=== PATIENT | female | born 1965 | race Caucasian/White ===

== ENCOUNTER → 2017-07-07 | Day surgery (SDC) | payer BC ==
--- NOTE | 2017-07-08 17:29 | PATH ---
Cytology Non-Gynecological Report Patient Name: KIMBER CASAS [facility]. Rec. #: [id number] /Age/Gender: 1965 (Age: 51) / F Account: [id number] Location: RADIOLOGY Taken: 07/07/2017 Received: 07/07/2017 Reported: 07/08/2017 Physicians: Nj Garcia M.D. Specimen(s) Received LEFT THYROID FNA Clinical History Left thyroid nodule, 1.6 x 2.2 x 1.3 cm Final Diagnosis THYROID GLAND, LEFT LOBE, US GUIDED FINE NEEDLE ASPIRATION BIOPSY: SATISFACTORY FOR EVALUATION. NO MALIGNANT CELLS IDENTIFIED. CONSISTENT WITH NODULAR HYPERPLASIA (BENIGN FOLLICULAR NODULE, BETHESDA CATEGORY II, BENIGN), SEE COMMENT. Comment: The smears and the cell block show clusters of bland appearing follicular epithelial cells arranged in macro-and microfollicles and flat sheets. Most of the cells show Hurthle cell (oncocytic) change. Abundant colloid is present. Electronically Signed Ignacio Frias M.D. Gross Description Received are four air dried smears, four smears in 95% alcohol, and 20 cc of bloody fluid in formalin. Four diff-quik stained slides, four Pap stained slides and one cell block are made.
== END | disposition home or self-care (01) ==
LOC: JRADIR 09:00
PROVIDERS: ATTEND Internal Medicine
PROC: 0G9G3ZX Drainage of Left Thyroid Gland Lobe, Percutaneous Approach, Diagnostic (ICD-10-PCS; principal; 2017-07-07)
PROC: BG44ZZZ Ultrasonography of Thyroid Gland (ICD-10-PCS; 2017-07-07)
DX: E04.1 Nontoxic single thyroid nodule (principal)
CPT/HCPCS: 76942; 88173; 88305-TC

== ENCOUNTER 2017-12-15 08:44 | Day surgery (SDC) | payer BC ==
[2017-12-07 19:10] VITALS: BMI 20.8
[2017-12-15] MEDS ORDERED: PROPOFOL 20 ML ONE ×2 (09:12)
[2017-12-15 11:10] VITALS: TEMP 98
[2017-12-15 11:31] VITALS: BP 131/78; PULSE 88
== END 2017-12-15 11:30 | disposition home or self-care (01) ==
LOC: FASU-ENDO 08:44
PROVIDERS: ATTEND Internal Medicine Gastroenterology
PROC: 0DJD8ZZ Inspection of Lower Intestinal Tract, Via Natural or Artificial Opening Endoscopic (ICD-10-PCS; principal; 2017-12-15 10:19)
DX: R10.9 Unspecified abdominal pain (principal); K64.8 Other hemorrhoids
CPT/HCPCS: 84703

== ENCOUNTER 2017-12-27 14:30 | Emergency (ER) | payer BC ==
--- NOTE | 2017-12-27 14:42 | PDOC ---
Rapid Medical Evaluation Time Seen by Provider: 12/27/17 14:38 Medical Evaluation: Allergies Allergy/AdvReac Type Severity Reaction Status Date / Time erythromycin base Allergy Vomiting Verified 12/07/17 18:54 [Erythromycin Base] LORMAX Allergy Severe Rash Uncoded 12/15/17 09:41 12/27/17 14:39 I have performed a brief in person evaluation of this patient. The patient presents with chief complaint of : dizzyness for 2 days, with right shoulder pain and tachycardia for 2 day. sent by . Pertinent PE findings: HR 129 , 138/91 I have ordered the following: EKG, The patient will proceed to the ER for further evaluation. 12/27/17 14:40
[2017-12-27 14:43] VITALS: TEMP 97.9; BMI 20.8
[2017-12-27 15:15] LABS: HCG,QUALITATIVE URINE NEGATIVE
--- NOTE | 2017-12-27 15:18 | PDOC ---
History of Present Illness - General Chief Complaint: Palpitations Stated Complaint: RAPID HEARTBEAT (PCP SENT) Time Seen by Provider: 12/27/17 14:38 - History of Present Illness Initial Comments: 12/27/17 15:20 52F with pmh of MS and endometriosis on oral contraceptive medication presenting with right scapular pain for the past 2 days and persistent tachycardia found by her pcp Dr. Rincon. Recent colonoscopy (12/15) for abdominal pain, now resolved. Denies abdominal pain, chest pain, anxiety or shortness of breath. 12/27/17 16:44 Past History - Past Medical History Allergies/Adverse Reactions: Allergies Allergy/AdvReac Type Severity Reaction Status Date / Time erythromycin base Allergy Vomiting Verified 12/27/17 14:43 [Erythromycin Base] LORMAX Allergy Severe Rash Uncoded 12/27/17 14:43 Home Medications: Ambulatory Orders Dalfampridine [Ampyra] 10 mg PO BID 07/16/12 Fingolimod HCl [Gilenya] 0.5 mg PO DAILY 07/16/12 Cholecalciferol (Vitamin D3) [Vitamin D3] 2,000 unit PO BID 12/07/17 Cyanocobalamin (Vitamin B-12) [Vitamin B-12] 1,000 mcg PO DAILY 12/07/17 Leuprolide Acetate [Lupron Depot 3.75MG -] 3.753 mg IM MONTHLY 12/07/17 Norethindrone Acetate [Norethindrone AC (Lupaneta)] 5 mg PO DAILY 12/07/17 Anemia: No Asthma: No Cancer: No Cardiac Disorders: No CVA: No COPD: No CHF: No Dementia: No Diabetes: No GI Disorders: No Disorders: No HTN: No Hypercholesterolemia: No Liver Disease: No Seizures: No Thyroid Disease: No - Surgical History Abdominal Surgery: Yes (upper endoscopy) Appendectomy: No Cardiac Surgery: No Cholecystectomy: No Lung Surgery: No Neurologic Surgery: No Orthopedic Surgery: No - Suicide/Smoking/Psychosocial Hx Smoking Status: No Smoking History: Never smoked Have you smoked in the past 12 months: No Number of Cigarettes Smoked Daily: 0 Information on smoking cessation initiated: No Hx Alcohol Use: No Drug/Substance Use Hx: No Substance Use Type: Alcohol Hx Substance Use Treatment: No Cardiac Specific PMH - Complaint Specific PMHX Pacemaker: No Review of Systems - Review of Systems Able to Perform ROS?: Yes Is the patient limited Bengali proficient: No Constitutional: No: Symptoms Reported HEENTM: No: Symptoms Reported Respiratory: No: Symptoms reported Cardiac (ROS): No: Symptoms Reported ABD/GI: No: Symptoms Reported : No: Symptoms Reported Musculoskeletal: Yes: See HPI Integumentary: No: Symptoms Reported Neurological: No: Symptoms reported All Other Systems: Reviewed and Negative *Physical Exam - Vital Signs Last Vital Signs Temp Pulse Resp BP Pulse Ox 97.9 F 108 H 18 141/86 97 12/27/17 14:40 12/27/17 18:27 12/27/17 18:27 12/27/17 18:27 12/27/17 18:27 - Physical Exam General Appearance: Yes: Nourished, Appropriately Dressed. No: Apparent Distress HEENT: positive: EOMI, ISABELLA, Normal ENT Inspection Respiratory/Chest: positive: Lungs Clear, Normal Breath Sounds. negative: Chest Tender, Respiratory Distress Cardiovascular: positive: Regular Rhythm, S1, S2, Tachycardia Gastrointestinal/Abdominal: positive: Normal Bowel Sounds, Flat, Soft. negative : Tender Musculoskeletal: positive: Normal Inspection. negative: CVA Tenderness Extremity: positive: Normal Capillary Refill, Normal Inspection, Normal Range of Motion Neurologic: positive: Fully Oriented, Alert, Normal Mood/Affect, Normal Response ED Treatment Course - LABORATORY CBC & Chemistry Diagram: 12/27/17 16:00 12/27/17 16:00 - ADDITIONAL ORDERS Additional order review: Laboratory Results 12/27/17 12/27/17 12/27/17 16:00 16:00 16:00 Sodium 140 Potassium 4.1 Chloride 109 H Carbon Dioxide 23 Anion Gap 8 BUN 7 Creatinine 0.7 Creat Clearance w eGFR > 60 Random Glucose 76 Calcium 8.6 Total Bilirubin 0.4 AST 12 L ALT 17 Alkaline Phosphatase 66 Creatine Kinase 162 Creatine Kinase Index 2.8 CK-MB (CK-2) 4.583 H Troponin I < 0.02 Total Protein 6.8 Albumin 4.2 TSH 1.05 Urine Color Urine Appearance Urine pH Ur Specific Stockett Urine Protein Urine Glucose (UA) Urine Ketones Urine Blood Urine Nitrite Urine Bilirubin Urine Urobilinogen Ur Leukocyte Esterase Urine HCG, Qual 12/27/17 14:55 Sodium Potassium Chloride Carbon Dioxide Anion Gap BUN Creatinine Creat Clearance w eGFR Random Glucose Calcium Total Bilirubin AST ALT Alkaline Phosphatase Creatine Kinase Creatine Kinase Index CK-MB (CK-2) Troponin I Total Protein Albumin TSH Urine Color Ltyellow Urine Appearance Clear Urine pH 6.0 Ur Specific Stockett 1.010 Urine Protein Negative Urine Glucose (UA) Negative Urine Ketones 1+ H Urine Blood Negative Urine Nitrite Negative Urine Bilirubin Negative Urine Urobilinogen Negative Ur Leukocyte Esterase Negative Urine HCG, Qual Negative 12/27/17 16:00 RBC 4.73 MCV 90.6 MCHC 33.6 RDW 13.9 MPV 9.5 Neutrophils % 81.8 Lymphocytes % 5.7 L Monocytes % 11.4 H Eosinophils % 0.8 Basophils % 0.3 - RADIOLOGY Radiology Studies Ordered: Category Date Time Status CHEST CTA [CT] Stat CT Scan 12/27/17 16:06 Completed CHEST X-RAY PORTABLE* [RAD] Stat Radiology 12/27/17 16:01 Completed Medical Decision Making - Medical Decision Making 12/27/17 16:14 Patient is high risk for PE as she has thoracic chest pain, is persistently tachycardic and is taking oral contraceptive medication. Her last creatinine was within normal limits in september. Hence i believe she has high risk factor for PE and low risk of kidney injury. I believe patient can get chest CTA without waiting for creatinine level, Dr. Stock concurred. 12/27/17 16:25 12/27/17 18:02 CTA negative for PE. PAtient ok to be discharged *DC/Admit/Observation/Transfer Diagnosis at time of Disposition: Palpitations - Discharge Dispostion Disposition: HOME Condition at time of disposition: Improved Admit: No - Referrals Referrals: Dennis Barry MD [Primary Care Provider] - - Patient Instructions Printed Discharge Instructions: DI for Palpitations Additional Instructions: Come Back to the Er for any new, concerning or worsening symptom. Follow up with Dr. Barry tomorrow and with your neurologist within the week. - Post Discharge Activity
[2017-12-27 15:20] LABS: URINE APPEARANCE CLEAR; URINE BILIRUBIN NEGATIVE (NEGATIVE); URINE BLOOD NEGATIVE (NEGATIVE); URINE COLOR LTYELLOW; URINE GLUCOSE (UA) NEGATIVE (NEGATIVE); URINE KETONE 1+ (NEGATIVE); URINE LEUK ESTERASE NEGATIVE (NEGATIVE); URINE NITRITE NEGATIVE (NEGATIVE); URINE PROTEIN NEGATIVE (NEGATIVE); URINE UROBILINOGEN NEGATIVE mg/dL (0.2-1.0)
[2017-12-27 16:19] LABS: BASO % 0.3 % (0-2.0); EOS % 0.8 % (0-4.5); HEMATOCRIT 42.9 % (32.4-45.2); HEMOGLOBIN 14.4 GM/dL (10.7-15.3); LYMPH % 5.7 % (8-40); MCH 30.4 pg (25.7-33.7); MCHC 33.6 g/dl (32.0-36.0); MEAN CELL VOLUME 90.6 fl (80-96); MEAN PLT VOLUME 9.5 fl (7.5-11.1); MONO % 11.4 % (3.8-10.2); NEUT % 81.8 % (42.8-82.8); PLATELET COUNT 248 K/MM3 (134-434); RBC 4.73 M/mm3 (3.60-5.2); RDW 13.9 % (11.6-15.6); WHITE BLOOD COUNT 6.6 K/mm3 (4.0-10.0)
[2017-12-27 16:51] LABS: ALBUMIN 4.2 g/dl (3.4-5.0); ANION GAP 8 (8-16); BLOOD UREA NITROGEN 7 mg/dL (7-18); CALCIUM 8.6 mg/dL (8.5-10.1); CHLORIDE 109 mmol/L (98-107); CO2 23 mmol/L (21-32); CREATININE 0.7 mg/dL (0.55-1.02); GLUCOSE,RANDOM 76 mg/dL (74-106); POTASSIUM 4.1 mmol/L (3.5-5.1); SGOT/AST 12 U/L (15-37); SGPT/ALT 17 U/L (12-78); SODIUM 140 mmol/L (136-145)
[2017-12-27 16:53] LABS: ALK PHOS 66 U/L (45-117); BILIRUBIN,TOTAL 0.4 mg/dL (0.2-1.0); TOT PROT 6.8 g/dl (6.4-8.2)
--- NOTE | 2017-12-27 17:03 | PDOC ---
Attending Attestation - Resident Resident Name: Jean ClaudeBlayne - ED Attending Attestation I have performed the following: I have examined & evaluated the patient, The case was reviewed & discussed with the resident, I agree w/resident's findings & plan, Exceptions are as noted - HPI HPI: 12/27/17 16:58 52y/o F h/o MS presents from GI office for sinus tachycardia in the setting of atraumatic right scapular pain since yesterday. No chest pain or shortness of breath, no recent travel, she is on exogenous hormones for endometriosis. Chronic intermittent RLE swelling from her MS. Pt's tachycardia has been noted for at least one month, initially at neurologist visit in November then again at her colonoscopy on 12/15. When she was noted to again be tachycardic today at the GI f/u appt, she was referred to the ED. had thyroid nodule biopsied end of 2016, never told she was hyperthyroid. Has no exertional sxs or weight loss. - Physicial Exam PE: 12/27/17 17:01 Heart rate 120s, blood pressure normal, O2 sat normal well appearing, speaking full sentences Exam as noted, regular tachycardia, no signs of DVT - no edema noted no thyroid enlargement or nodules - Medical Decision Making 12/27/17 17:01 Patient seen and evaluated with the resident. I agree with the overall evaluation, assessment, and management with the following summary of visit: 52-year-old female with nonspecific right scapular pain for 1 day and subacute sinus tachycardia over 1-2 months. No respiratory distress, does have some risk factors for PE. EKG shows sinus tachycardia without acute T wave changes, some rate related lateral ST depressions. Labs are within normal limits, including hemoglobin and troponin. Will add TSH. CTA chest given moderate risk for PE (hormones, tachycardia) Reassess, if remains tachycardic will discuss dispo plan with Dr. Barry. Has never seen a horologist. Heart Score/ECG Review #1 ECG reviewed & interpreted by me at: 14:36 General ECG Interpretation: Sinus Rhythm (tachy at 124), Normal Intervals (qtc 451), No acute ischemic changes
[2017-12-27 18:28] VITALS: BP 141/86; PULSE 108
--- NOTE | 2017-12-28 11:31 | EKG ---
Test Reason : Blood Pressure : / mmHG Vent. Rate : 124 BPM Atrial Rate : 124 BPM P-R Int : 156 ms QRS Dur : 062 ms QT Int : 314 ms P-R-T Axes : 071 037 060 degrees QTc Int : 451 ms SINUS TACHYCARDIA POSSIBLE LEFT ATRIAL ENLARGEMENT NONSPECIFIC ST ABNORMALITY ABNORMAL ECG NO PREVIOUS ECGS AVAILABLE Confirmed by MD Fernando, Cody ([id number]) on 12/28/2017 11:31:17 AM Referred By: Confirmed By:Cody King MD
== END 2017-12-27 18:40 | disposition home or self-care (01) ==
LOC: JER 14:30
DX: M25.511 Pain in right shoulder (principal); R00.0 Tachycardia, unspecified
CPT/HCPCS: 36415; 71045-TC-FY; 71275-TC; 80053; 81003; 82550; 82553; 84443; 84484; 84703; 85025; 93005; 93010; 99284-25

== ENCOUNTER 2018-08-30 00:32 | Emergency (ER) | payer BC ==
--- NOTE | 2018-08-30 01:32 | PDOC ---
History of Present Illness - General Stated Complaint: FALL, INJURY/HEAD Time Seen by Provider: 08/30/18 01:08 History Source: Patient Exam Limitations: No Limitations - History of Present Illness Initial Comments: 08/30/18 02:37 Best Contact: PCP:Dr. Phoenix Pmhx: 1997: Pshx: BTL Allergies:erythromycin/hives and vomiting FH:0 Social Hx: Cigarettes/ 0 Alcohol/ 0 Drugs/0 52-year-old female presents to the emergency department complaining of a laceration to the left occiput. Patient states while reaching for remote control , she tripped and fell to the left. Bleeding controlled with direct pressure prior to her arrival. Patient denies LOC, headache, dizziness, lightheadedness, facial pains, neck/back pains, chest pain, shortness of breath, abdominal pains , extremity numbness or tingling sensation. Patient's last tetanus within 5 years. Patient denies any pain except for her lacerated scalp. Past History - Past Medical History Allergies/Adverse Reactions: Allergies Allergy/AdvReac Type Severity Reaction Status Date / Time erythromycin base Allergy Vomiting Verified 08/30/18 02:01 [Erythromycin Base] LORMAX Allergy Severe Rash Uncoded 08/30/18 02:01 Home Medications: Ambulatory Orders Dalfampridine [Ampyra] 10 mg PO BID 07/16/12 Fingolimod HCl [Gilenya] 0.5 mg PO DAILY 07/16/12 Cholecalciferol (Vitamin D3) [Vitamin D3] 2,000 unit PO BID 12/07/17 Cyanocobalamin (Vitamin B-12) [Vitamin B-12] 1,000 mcg PO DAILY 12/07/17 Leuprolide Acetate [Lupron Depot 3.75MG -] 3.753 mg IM MONTHLY 12/07/17 Norethindrone Acetate [Norethindrone AC (Lupaneta)] 5 mg PO DAILY 12/07/17 Anemia: No Asthma: No Cancer: No Cardiac Disorders: No CVA: No COPD: No CHF: No Dementia: No Diabetes: No GI Disorders: No Disorders: No HTN: No Hypercholesterolemia: No Liver Disease: No Seizures: No Thyroid Disease: No - Surgical History Abdominal Surgery: Yes (upper endoscopy) Appendectomy: No Cardiac Surgery: No Cholecystectomy: No Lung Surgery: No Neurologic Surgery: No Orthopedic Surgery: No - Suicide/Smoking/Psychosocial Hx Smoking Status: No Smoking History: Never smoked Have you smoked in the past 12 months: No Number of Cigarettes Smoked Daily: 0 Hx Alcohol Use: No Drug/Substance Use Hx: No Substance Use Type: Alcohol Hx Substance Use Treatment: No Review of Systems - Review of Systems Able to Perform ROS?: Yes Comments:: 08/30/18 02:39 CONSTITUTIONAL: Absent: fever, chills, diaphoresis, generalized weakness, malaise, loss of appetite HEENT: Absent: rhinorrhea, nasal congestion, throat pain, throat swelling, difficulty swallowing, mouth swelling, ear pain, eye pain, visual Changes CARDIOVASCULAR: Absent: chest pain, loss of consciousness, palpitations, irregular heart rate, peripheral edema RESPIRATORY: Absent: cough, shortness of breath, dyspnea with exertion, orthopnea, wheezing, stridor, hemoptysis GASTROINTESTINAL: Absent: abdominal pain, abdominal distension, nausea, vomiting, diarrhea, constipation, melena, hematochezia GENITOURINARY: Absent: dysuria, frequency, urgency, hesitancy, hematuria, flank pain, genital pain MUSCULOSKELETAL: Absent: myalgia, arthralgia, joint swelling SKIN: Absent: rash, itching, pallor HEMATOLOGIC/IMMUNOLOGIC: Absent: easy bleeding, easy bruising, lymphadenopathy, frequent infections ENDOCRINE: Absent: unexplained weight gain, unexplained weight loss, heat intolerance, cold intolerance NEUROLOGIC: +Left occipital scalp lac Absent: headache, focal weakness or paresthesias, dizziness, unsteady gait, seizure, mental status changes, bladder or bowel incontinence PSYCHIATRIC: Absent: anxiety, depression, suicidal or homicidal ideation, hallucinations. Is the patient limited Ukrainian proficient: No *Physical Exam - Physical Exam Comments: 08/30/18 02:40 GENERAL: Well developed, well nourished. Awake and alert. No acute distress. HEENT: Normocephalic, atraumatic. PERRLA, EOMI. No conjunctival pallor. Sclera are non- icteric. Moist mucous membranes. Oropharynx is clear. NECK: Supple. Full ROM. No JVD. Carotid pulses 2+ and symmetric, without bruits. No thyromegaly. No lymphadenopathy. CARDIOVASCULAR: Regular rate and rhythm. No murmurs, rubs, or gallops. Distal pulses are 2+ and symmetric. PULMONARY: No evidence of respiratory distress. Lungs clear to auscultation bilaterally. No wheezing, rales or rhonchi. ABDOMINAL: Soft. Non-tender. Non-distended. No rebound or guarding. No organomegaly. Normoactive bowel sounds. MUSCULOSKELETAL Normal range of motion at all joints. No bony deformities or tenderness. No CVA tenderness. EXTREMITIES: No cyanosis. No clubbing. No edema. No calf tenderness. SKIN: 3.5cm left occipital oblique partial thickness scalp lac Warm and dry. Normal capillary refill. No rashes. No jaundice. NEUROLOGICAL: Alert, awake, appropriate. Cranial nerves 2-12 intact. No deficits to light touch and temperature in face, upper extremities and lower extremities. No motor deficits in the in face, upper extremities and lower extremities. Normoreflexic in the upper and lower extremities. Normal speech. Toes are down- going bilaterally. Gait is normal without ataxia. PSYCHIATRIC: Cooperative. Good eye contact. Appropriate mood and affect. PROCEDURE NOTE 3.5 cm left occipital oblique partial-thickness scalp last Betadine prep 1% lidocaine plain= 4 mL Copious normal saline irrigation (4) lavern Bacitracin telfa kerlix *DC/Admit/Observation/Transfer Diagnosis at time of Disposition: Laceration of head Qualifiers: Encounter type: initial encounter Location of open wound of head: scalp Foreign body presence: without foreign body Qualified Code(s): S01.01XA - Laceration without foreign body of scalp, initial encounter - Discharge Dispostion Condition at time of disposition: Stable Decision to Admit order: No - Referrals Referrals: Dennis Barry MD [Primary Care Provider] - - Patient Instructions Printed Discharge Instructions: DI for Laceration Repair of the Scalp, DI for Closed Head Injury Additional Instructions: Keep the incision clean and dry for 24 hours. After 24 hours, you may allow the soap and water to rinse off your incision. Avoid direct pressure of the water to the incision. Pat the incision dry with a clean clothe. Apply a small amount of bacitracin onto the incision. Cover the incision loosely with a bandaid. Take tylenol/motrin as needed for pain. Follow up with your physician or the ER in 48 hours for a wound check. Return to the ER if you notice red streaks, increase redness/swelling/severe pain to the incision. Lavern removal in 10-12 days. - Post Discharge Activity
[2018-08-30 02:01] VITALS: BP 114/96; PULSE 102; TEMP 99; BMI 20.1
== END 2018-08-30 04:00 | disposition home or self-care (01) ==
LOC: JER 00:32
PROC: 0HQ0XZZ Repair Scalp Skin, External Approach (ICD-10-PCS; principal; 2018-08-30)
DX: S01.01XA Laceration without foreign body of scalp, initial encounter (principal); W01.198A Fall on same level from slipping, tripping and stumbling with subsequent striking against other object, initial encounter; Y93.89 Activity, other specified; Y92.89 Other specified places as the place of occurrence of the external cause; Y99.8 Other external cause status
CPT/HCPCS: 99281-25

== ENCOUNTER 2018-11-27 13:32 | Emergency (ER) | payer BC ==
[2018-11-27 13:42] VITALS: BP 152/69; PULSE 129; TEMP 97.8; BMI 24.1
--- NOTE | 2018-11-27 14:29 | PDOC ---
History of Present Illness - General Chief Complaint: Chest Pain Stated Complaint: CHEST PAIN Time Seen by Provider: 11/27/18 14:28 - History of Present Illness Initial Comments: 53 year old female with PMH of MS (currently having a flareup scheduled for IV steroid treatment) presenting with epigastric pain for the past few hours. States she began having an aching gnawing pain in her epigastrium 4 hours before presentation and she took some backing soda and water one hour ago. States that she is currently asymptomatic and would like to go home. Of note, she has a baseline tacycardia for the past year "110 and above" according to her that she has been evaluated for her fast heart rate and chest pain in the past with negative CT PE last year and holter monitor negative for anything concerning by Dr. Milner. She is set up for an echo and a stress test. She insists that she is stable to go home. She is not currently on estrogen therapy but was in the past. 11/27/18 14:41 Past History - Past Medical History Allergies/Adverse Reactions: Allergies Allergy/AdvReac Type Severity Reaction Status Date / Time erythromycin base Allergy Vomiting Verified 08/30/18 02:01 [Erythromycin Base] LORMAX Allergy Severe Rash Uncoded 08/30/18 02:01 Home Medications: Ambulatory Orders Dalfampridine [Ampyra] 10 mg PO BID 07/16/12 Fingolimod HCl [Gilenya] 0.5 mg PO DAILY 07/16/12 Cholecalciferol (Vitamin D3) [Vitamin D3] 2,000 unit PO BID 12/07/17 Cyanocobalamin (Vitamin B-12) [Vitamin B-12] 1,000 mcg PO DAILY 12/07/17 Anemia: No Asthma: No Cancer: No Cardiac Disorders: Yes (tachycardic) CVA: No COPD: No CHF: No Dementia: No Diabetes: No GI Disorders: No Disorders: No HTN: No Hypercholesterolemia: No Liver Disease: No Seizures: No Thyroid Disease: No Other medical history: MS - Surgical History Abdominal Surgery: Yes (upper endoscopy) Appendectomy: No Cardiac Surgery: No Cholecystectomy: No Lung Surgery: No Neurologic Surgery: No Orthopedic Surgery: No - Immunization History Immunization Up to Date: No - Suicide/Smoking/Psychosocial Hx Smoking Status: No Smoking History: Never smoked Have you smoked in the past 12 months: No Number of Cigarettes Smoked Daily: 0 Information on smoking cessation initiated: No Hx Alcohol Use: No Drug/Substance Use Hx: No Substance Use Type: Alcohol Hx Substance Use Treatment: No Review of Systems - Review of Systems Constitutional: No: Chills, Diaphoresis, Fever, Loss of Appetite HEENTM: No: Eye Pain, Blurred Vision, Tearing Respiratory: No: Cough, Orthopnea, Shortness of Breath, SOB with Exertion, Wheezing Cardiac (ROS): No: Chest Pain, Edema, Irregular Heart Rate ABD/GI: Yes: Other (epigastric pain). No: Nausea, Vomiting : No: Burning, Dysuria, Discharge Musculoskeletal: No: Back Pain, Joint Pain Integumentary: No: Flushing, Lesions, Lumps Neurological: No: Headache, Numbness, Paresthesia Psychiatric: No: Anxiety, Depression Endocrine: No: Flushing, Intolerance to Cold, Increased Urine Hematologic/Lymphatic: No: Anemia, Blood Clots, Easy Bleeding *Physical Exam - Vital Signs Last Vital Signs Temp Pulse Resp BP Pulse Ox 97.8 F 129 H 16 152/69 98 11/27/18 13:35 11/27/18 13:35 11/27/18 13:35 11/27/18 13:35 11/27/18 13:35 - Physical Exam General Appearance: Yes: Nourished, Appropriately Dressed. No: Apparent Distress HEENT: positive: EOMI, ISABELLA, Normal ENT Inspection, Normal Voice Neck: positive: Trachea midline, Normal Thyroid, Supple. negative: Tender, Rigid Respiratory/Chest: positive: Lungs Clear, Normal Breath Sounds. negative: Chest Tender, Respiratory Distress, Accessory Muscle Use Cardiovascular: positive: Regular Rhythm, Tachycardia. negative: Regular Rate Gastrointestinal/Abdominal: positive: Normal Bowel Sounds, Tender (epigastric ttp), Flat, Soft Musculoskeletal: positive: Normal Inspection. negative: CVA Tenderness Extremity: positive: Normal Capillary Refill, Normal Inspection, Normal Range of Motion. negative: Tender Integumentary: positive: Normal Color, Dry, Warm Neurologic: positive: Fully Oriented, Alert, Normal Mood/Affect, Normal Response , Motor Strength 5/5 Moderate Sedation - Procedure Monitoring Vital Signs: Procedure Monitoring Vital Signs Temperature 97.8 F 11/27/18 13:35 Pulse Rate 129 H 11/27/18 13:35 Respiratory Rate 16 01/27/19 13:35 Blood Pressure 152/69 01/27/19 13:35 O2 Sat by Pulse Oximetry (%) 98 11/27/18 13:35 ED Treatment Course - LABORATORY CBC & Chemistry Diagram: 11/27/18 15:20 11/27/18 15:20 Medical Decision Making - Medical Decision Making 53 year old female with PMH of MS presenting with epigastric pain, non radiating , non exertional, non pleuritic and resolved one hour after baking soda and water ingestion. Insists that she is stable and ready to go home. She did, however, agree to basic labs, trop, ekg and CXR. All imaging and labs were negative for acute pathology. Her hr improved from 130s to low 100s after 1 L NS. She was complaining of some continued epigastric burning toward the end of her stay so she was given IV Pepcid and DC'd with follow up precautions. EKG demonstrating rate 127, GA 132, QRS 64, QTc 430, normal axis and no ST or t wave changes. She follow with Dr. Milner for cardiology. 11/27/18 15:11 *DC/Admit/Observation/Transfer Diagnosis at time of Disposition: Tachycardia, Epigastric pain - Discharge Dispostion Disposition: HOME Condition at time of disposition: Improved Decision to Admit order: No - Referrals Referrals: Dennis Barry MD [Primary Care Provider] - Kyle Milner MD [Non Staff, Medical] - - Patient Instructions Printed Discharge Instructions: DI for Atypical Chest Pain, DI for Epigastric Pain Additional Instructions: Please use your Maalox and antacids at home for you epigastric pain. Please follow up with your beauty sales consultant. Please return to the ED if you have new or worsening symptoms. - Post Discharge Activity
[2018-11-27] MEDS ORDERED: SODIUM CHLORIDE 1,000 ML IV ONE (15:15)
--- NOTE | 2018-11-27 15:23 | PDOC ---
Attending Attestation - Resident Resident Name: Dena Barcenas - ED Attending Attestation I have performed the following: I have examined & evaluated the patient, The case was reviewed & discussed with the resident, I agree w/resident's findings & plan, Exceptions are as noted - HPI HPI: 11/27/18 16:29 This patient is a 53 year old female with PMHx of MS (currently having a flare- up scheduled for IV solumedrol tomorrow, 6 mos ago last steroid use) presenting with epigastric pain for the past 5 days. Patient states that for the past month she has been having an MS flare-up (sx include generalized weakness, feeling foggy, borderline numbness, and constipation). She states that for the past couple of days she developed this epigastric pain that she describes as constant, pressure-like with associated burping. She states that the epigastric pain felt like her gastritis. She also reports feeling nauseous and hot - which is not usual for her she states. She denies worsening of her symptmos with exertion/ambulation and notes that it seems to feel better when she is walking around. Today, she states that she drank diluted baking soda to help relieve her epigastric symptoms which have since resolved after arriving to the ER. She notes that she has a stress test and echo scheduled with her occupational therapy assist and is being evaluated for her baseline tachycardia. She states that she usually runs 110+ bpm . She has been evaluated for her fast heart rate and chest pain in the past with negative CT PE last year and holter monitor negative for anything concerning by Dr. Milner. Denies any sob, beauchamp, fever, cough, diarrhea, vimting, diaphoresis, lightheadedness, edema, visual changes, focal weakness. PCP: Asha Document Review Attorney: Dr. Milner Neurologist: Jeffery Cobian ([facility]) - Physicial Exam PE: 11/27/18 15:21 GENERAL: The patient is awake, alert, and fully oriented, Nontoxic - in no acute distress. HEAD: Normocephalic, atraumatic. EYES: extraocular movements intact, sclera anicteric, conjunctiva clear. ENT: Normal voice, Moist mucous membranes. NECK: Normal range of motion, supple LUNGS: Breath sounds equal, clear to auscultation bilaterally. No wheezes, no rhonchi, no rales. HEART: tachycardic, no mrg ABDOMEN: Soft, nontender, normoactive bowel sounds. No guarding, no rebound. . No CVA tenderness EXTREMITIES: Normal range of motion, trace edema. NEUROLOGICAL: No facial assymetry, Normal speech, moving all 4 extremities spontaneously, deminsiehd sensation diffseuly PSYCH: Normal mood, normal affect. SKIN: Warm, Dry, normal turgor, - Medical Decision Making 11/27/18 15:17 53y F hx of MS, tachycardia (currently being worked up by cardiology) presents with about a week of epigastric burning (cw perior gastritis) that is constant, but currentyl resolved after taking baking soda and water. no exertional sypmtoms, sob, n/v, diaphoresis, leg swelling, diarrhea, bpr, urinary sypmtoms, fever/chills on exam pt in no distress noted tachycardic on triage on my exam will ck labs, trop, lipase, ekg, cxr hydration for her tachycardia no cp or discomfort currently A portion of this note was documented by scribe services under my direction. I have reviewed the details of the note, within reason, and agree with the documentation with the following case summary and management plan written by me Heart Score/ECG Review - ECG Impressions Comment:: 11/27/18 15:19 Twelve-lead EKG was performed and reviewed by me. There is normal sinus rhythm rate of [address] wave changes
[2018-11-27 15:32] LABS: BASO % 0.6 % (0-2.0); EOS % 0.4 % (0-4.5); HEMATOCRIT 43.1 % (32.4-45.2); HEMOGLOBIN 15.1 GM/dL (10.7-15.3); LYMPH % 6.2 % (8-40); MCH 31.5 pg (25.7-33.7); MCHC 35.1 g/dl (32.0-36.0); MEAN CELL VOLUME 89.7 fl (80-96); MEAN PLT VOLUME 9.7 fl (7.5-11.1); MONO % 10.5 % (3.8-10.2); NEUT % 82.3 % (42.8-82.8); PLATELET COUNT 227 K/MM3 (134-434); RDW 13.4 % (11.6-15.6); WHITE BLOOD COUNT 6.2 K/mm3 (4.0-10.0)
[2018-11-27 15:54] LABS: INR 0.92 (0.83-1.09); PROTHROMBIN TIME (PATIENT) 10.8 SEC (9.7-13.0)
[2018-11-27 16:09] LABS: ALBUMIN 4.8 g/dl (3.4-5.0); ALK PHOS 84 U/L (45-117); ANION GAP 8 MMOL/L (8-16); BILIRUBIN,TOTAL 0.3 mg/dL (0.2-1); BLOOD UREA NITROGEN 10 mg/dL (7-18); CALCIUM 8.9 mg/dL (8.5-10.1); CHLORIDE 110 mmol/L (98-107); CO2 26 mmol/L (21-32); CREATININE 0.6 mg/dL (0.55-1.3); GLUCOSE,RANDOM 90 mg/dL (74-106); N-TERMINAL BNP 92.9 pg/ml (5-125); POTASSIUM 3.8 mmol/L (3.5-5.1); SGOT/AST 12 U/L (15-37); SGPT/ALT 25 U/L (13-61); SODIUM 143 mmol/L (136-145); TOT PROT 7.5 g/dl (6.4-8.2)
[2018-11-27 16:43] LABS: LIPASE 208 U/L (73-393)
[2018-11-27] MEDS ORDERED: FAMOTIDINE 20 MG/50 ML IVPB 20 MG in PREMIX 50 IVPB ONE (16:52)
[2018-11-27] MEDS ORDERED: MAG HYDROX/AL HYDROX/SIMETH -MYLANTA- ORAL SUSPENSION PO ONE (16:52)
[2018-11-27] MEDS ORDERED: FAMOTIDINE 20 MG/50 ML IVPB 20 MG/50 ML MG IVPB ONE ×2 (17:04→17:10)
[2018-11-27] MEDS ORDERED: MAG HYDROX/AL HYDROX/SIMETH 30 ML UNIT-DOSE CUP ONE (17:10)
--- NOTE | 2018-11-28 10:57 | EKG ---
Test Reason : Blood Pressure : / mmHG Vent. Rate : 127 BPM Atrial Rate : 127 BPM P-R Int : 132 ms QRS Dur : 064 ms QT Int : 296 ms P-R-T Axes : 069 041 044 degrees QTc Int : 430 ms SINUS TACHYCARDIA POSSIBLE LEFT ATRIAL ENLARGEMENT NONSPECIFIC ST ABNORMALITY ABNORMAL ECG WHEN COMPARED WITH ECG OF 27-DEC-2017 14:36, NO SIGNIFICANT CHANGE WAS FOUND Confirmed by MAN ZARCO MD ([id number]) on 11/28/2018 10:57:40 AM Referred By: Confirmed By:MAN ZARCO MD
== END 2018-11-27 17:15 | disposition home or self-care (01) ==
LOC: JER 13:32
PROC: 3E0337Z Introduction of Electrolytic and Water Balance Substance into Peripheral Vein, Percutaneous Approach (ICD-10-PCS; principal; 2018-11-27)
PROC: 3E033GC Introduction of Other Therapeutic Substance into Peripheral Vein, Percutaneous Approach (ICD-10-PCS; 2018-11-27)
DX: R00.0 Tachycardia, unspecified (principal); R10.13 Epigastric pain; G35 Multiple sclerosis
CPT/HCPCS: 36415; 71045-TC-FY; 80053; 82550; 83690; 83880; 84484; 85025; 85610; 93005; 93010; 99283-25; J7030

== ENCOUNTER 2019-05-02 09:19 | Emergency (ER) | payer BC ==
[2019-05-02 09:24] VITALS: TEMP 98.2; BMI 19.2
[2019-05-02] MEDS ORDERED: SODIUM CHLORIDE 0.9% 500 ML INFUS.BAG IV ONE (10:36)
[2019-05-02] MEDS ORDERED: METOCLOPRAMIDE HCL INJECTION 10 MG/2 ML VIAL IVPUSH ONE (10:38)
[2019-05-02] MEDS ORDERED: METOCLOPRAMIDE HCL INJECTION 10 MG/2 ML VIAL ONE (10:48)
--- NOTE | 2019-05-02 10:50 | PDOC ---
History of Present Illness - General Chief Complaint: Pain, Acute Stated Complaint: LT SIDE ABD PAIN Time Seen by Provider: 05/02/19 09:30 - History of Present Illness Initial Comments: 05/02/19 10:49 The patient is a 53 year old female with a PMH of MS and endometriosis who presents to our ED c/o 3 day h/o abdominal pain. Pain is "tightness" and without any identifiable triggering or relieving factors. Notes a baseline h/o constipation 2/2 to her multiple sclerosis. Denies any associated fevers/chills , nausea/vomiting. Patient further denies any chest pain, shortness of breath, lightheadedness, palpitations, numbness or tingling. PMD: Dr. Dennis Barry M.D. Bomb Squad Officer: Dr. Milner Neurologist: Jeffery Cobian ([facility]) Past History - Past Medical History Allergies/Adverse Reactions: Allergies Allergy/AdvReac Type Severity Reaction Status Date / Time erythromycin base Allergy Vomiting Verified 08/30/18 02:01 [Erythromycin Base] LORMAX Allergy Severe Rash Uncoded 08/30/18 02:01 Home Medications: Ambulatory Orders Dalfampridine [Ampyra] 10 mg PO BID 07/16/12 Fingolimod HCl [Gilenya] 0.5 mg PO DAILY 07/16/12 Cholecalciferol (Vitamin D3) [Vitamin D3] 2,000 unit PO BID 12/07/17 Cyanocobalamin (Vitamin B-12) [Vitamin B-12] 1,000 mcg PO DAILY 12/07/17 Anemia: No Asthma: No Cancer: No Cardiac Disorders: Yes (tachycardic) CVA: No COPD: No CHF: No Dementia: No Diabetes: No GI Disorders: No Disorders: No HTN: No Hypercholesterolemia: No Liver Disease: No Seizures: No Thyroid Disease: No - Surgical History Abdominal Surgery: Yes (upper endoscopy) Appendectomy: No Cardiac Surgery: No Cholecystectomy: No Lung Surgery: No Neurologic Surgery: No Orthopedic Surgery: No - Immunization History Immunization Up to Date: No - Suicide/Smoking/Psychosocial Hx Smoking Status: No Smoking History: Never smoked Have you smoked in the past 12 months: No Number of Cigarettes Smoked Daily: 0 Information on smoking cessation initiated: No Hx Alcohol Use: No Drug/Substance Use Hx: No Substance Use Type: Alcohol Hx Substance Use Treatment: No Review of Systems - Review of Systems Constitutional: No: Chills, Fever HEENTM: No: Recent change in vision Respiratory: No: Cough, Shortness of Breath Cardiac (ROS): No: Chest Pain, Edema ABD/GI: Yes: Abdominal cramping. No: Constipated, Diarrhea, Nausea, Vomiting : No: Burning, Dysuria *Physical Exam - Vital Signs Last Vital Signs Temp Pulse Resp BP Pulse Ox 98.2 F 106 H 16 122/66 100 05/02/19 09:22 05/02/19 09:22 05/02/19 09:22 05/02/19 09:22 05/02/19 09:22 - Physical Exam General Appearance: Yes: Nourished, Severe Distress HEENT: positive: Normal Voice, Hearing Grossly Normal Neck: positive: Trachea midline, Supple Respiratory/Chest: positive: Lungs Clear, Normal Breath Sounds Cardiovascular: positive: S1, S2 Vascular Pulses: Dorsalis-Pedis (R): 2+, Doralis-Pedis (L): 2+ Gastrointestinal/Abdominal: positive: Normal Bowel Sounds, Soft Musculoskeletal: negative: CVA Tenderness (R), CVA Tenderness (L) Extremity: positive: Normal Capillary Refill, Normal Inspection Integumentary: positive: Normal Color, Dry, Warm Neurologic: positive: Fully Oriented, Alert ED Treatment Course - LABORATORY CBC & Chemistry Diagram: 05/02/19 10:55 05/02/19 10:55 - RADIOLOGY Radiology Studies Ordered: Category Date Time Status ABDOMEN & PELVIS CT WITH CONTR [CT] Stat CT Scan 05/02/19 10:39 Ordered Medical Decision Making - Medical Decision Making 05/02/19 12:13 53 year old female with stabbing LLQ abdominal pain; h/o MS, baseline constipation. Tachycardic (HR 106) other VS unremarkable. Frontal diagnosis: constipation, colitis, gastritis/gastroenteritis, GERD/PUD less likely acute abdomen including cholecystitis, appendicitis, mesenteric ischemia, SBO. PLAN: basic labs, lipase, UA/UCx. Supportive care including IV fluids, Zofran. ED Course: CTAP showed no acute pathology, ovarian cyst (chronic) and pancreatic cysts ( chronic), splenic aneursym (stable) UA clean. Labs unremarkable. Patient improved, ambulatory, tolerating PO intake. Discharged home with return precautions and PMD follow-up within 1 week. Clinical Impression: Abdominal pain, likely 2/2 to chronic neurologic dysfunction 2/2 to MS *DC/Admit/Observation/Transfer Diagnosis at time of Disposition: Pain in the abdomen - Discharge Dispostion Disposition: HOME Condition at time of disposition: Stable Decision to Admit order: No - Referrals Referrals: Dennis Barry MD [Primary Care Provider] - - Patient Instructions Printed Discharge Instructions: DI for Abdominal Pain-Adult Additional Instructions: Please follow-up with your primary care doctor in the next 3 days. Return to the Emergency Department for any new/worsening/concerning symptoms. - Post Discharge Activity
[2019-05-02 11:12] LABS: URINE APPEARANCE CLEAR; URINE BILIRUBIN NEGATIVE (NEGATIVE); URINE COLOR YELLOW; URINE GLUCOSE (UA) NEGATIVE (NEGATIVE); URINE KETONE NEGATIVE (NEGATIVE); URINE LEUK ESTERASE NEGATIVE (NEGATIVE); URINE NITRITE NEGATIVE (NEGATIVE); URINE PROTEIN NEGATIVE (NEGATIVE); URINE UROBILINOGEN 0.2 mg/dL (0.2-1.0)
[2019-05-02 11:18] LABS: BASO % 0.3 % (0-2.0); EOS % 0.4 % (0-4.5); HEMATOCRIT 43.2 % (32.4-45.2); HEMOGLOBIN 14.4 GM/dL (10.7-15.3); LYMPH % 8.1 % (8-40); MCH 30.3 pg (25.7-33.7); MCHC 33.3 g/dl (32.0-36.0); MONO % 11.1 % (3.8-10.2); NEUT % 80.1 % (42.8-82.8); PLATELET COUNT 208 K/MM3 (134-434); RBC 4.75 M/mm3 (3.60-5.2); RDW 13.4 % (11.6-15.6); WHITE BLOOD COUNT 6.2 K/mm3 (4.0-10.0)
--- NOTE | 2019-05-02 11:34 | PDOC ---
Attending Attestation - Resident Resident Name: Ignacio uMsa - ED Attending Attestation I have performed the following: I have examined & evaluated the patient, The case was reviewed & discussed with the resident, I agree w/resident's findings & plan - HPI HPI: 05/02/19 11:38 53 year old female with PMH of MS, endometriosis presenting with left sided abdominal pain x 3 days, a/w nausea. Pt describes pain as tightness, nonradiating, not associated with food or movements. +constipated and urinary frequency chronically. No v/d, f/c, cp, sob, dizziness Went to PMD Dr Barry yesterday, presumed to be UTI, given IV ceftriaxone x 1 dose and dcd on course of ciprofloxacin, which she is on day 2. Last colonoscopy 1 year ago. Reportedly unremarkable, and told to f/u in 10 years. No suspicious food intake; eating and drinking normally Chronic neuropathy on right side, uses walker for ambulation. 05/02/19 11:39 - Physicial Exam PE: 05/02/19 11:38 Agree with the resident's HPI and PE as documented in the electronic medical record. NAD, well appearing, EOMI, PERRL, MMM, nl conjunctiva, anicteric; neck supple. lungs clear, +tachycardic, abdomen soft +LLQ tenderness, +voluntary guarding; no rebound no CVAT. Back nontender. REEVES x4, +chronically decreased sensation in RLE, no acute focal neuro changes/deficits. No peripheral edema. normal color for ethnicity, WWP. 05/02/19 11:39 - Medical Decision Making 05/02/19 11:39 See HPI for details. Prior notes reviewed, including admissions, discharges and consultations. Vital signs reviewed, +tachycardic, no fever or systemic sx. DDx abdominal pain: Renal colic, biliary colic, metabolic/electrolyte derangements. GERD, PUD, esophageal spasm, pancreatitis, hepatitis, constipation , colitis, gastroenteritis, cholecystitis, UTI, pyelonephritis, ileus, SBO, medication side effect, hernia, appendicitis, diverticulitis, mesenteric ischemia. msk strain, mesenteric adenitis, psoas abscess. laboratory results and imaging reviewed, basic labs and lytes wnl, LFTs/lipase_wnl UA_prelim neg, f/u cultures/ already on cipro for presumed UTI by PMD yesterday , could cause false negative UA ED course -interventions: IVF, zofran for nausea. declines analgesia POCUS aorta wnl, no AAA; POCUS renal with no hydronephrosis, bladder distended ( urinated); no pelvic FF - CT a/p to eval for diverticulitis, pyelonephritis, abdominal infection/ inflammation results with no acute pathology, rt ovarian cyst with increased internal density debris vs blood; fibroid. pancreatic cysts (stable) and splenic aneurysm (stable). Discussed the results with the patient, stable findings, improved ovarian cyst size, unlikely ovarian torsion at this point, pain has been improved. Patient would prefer outpatient ADMINISTRATIVE ASSOCIATE for nonemergent ultrasound given her ovarian cysts and fibroid uterus. Vital signs were repeated, heart rate improves, normotensive and no other complaints. She is amenable for discharge. Pt to be discharged in stable condition. Patient and family made aware of clinical impression, treatment recommendations and disposition plan, return precautions discussed (including but not limited to new or persistent/worsening symptoms, pain, fevers, or signs of infection, chest pain, respiratory distress , inability to tolerate oral intake, dehydration, syncope, or neurologic changes ). Follow up with PMD and/or ADMINISTRATIVE ASSOCIATE specialist as recommended, follow up information provided, take medications as instructed for duration of time. continue with supportive care, avoid triggers and precipitants. All questions answered to patient's satisfaction and expressed understanding and comfort with this. At the time of discharge, the patient is alert, clinically improved, tolerating po and verbalizes understanding of instructions, satisfied with the care received and felt comfortable with the plan. Patient does not suffer from an acute life-threatening medical condition at this time and is safe for outpatient follow-up. 05/02/19 14:21 05/02/19 16:00 05/02/19 16:01
[2019-05-02 11:40] LABS: ALBUMIN 4.4 g/dl (3.4-5.0); BILIRUBIN,TOTAL 0.3 mg/dL (0.2-1); BLOOD UREA NITROGEN 7.7 mg/dL (7-18); CALCIUM 9.7 mg/dL (8.5-10.1); CREATININE 0.8 mg/dL (0.55-1.3); POTASSIUM 3.8 mmol/L (3.5-5.1); TOT PROT 7.3 g/dl (6.4-8.2)
[2019-05-02 15:51] VITALS: BP 135/67; PULSE 99
== END 2019-05-02 15:51 | disposition home or self-care (01) ==
LOC: JER 09:19
PROC: 3E033GC Introduction of Other Therapeutic Substance into Peripheral Vein, Percutaneous Approach (ICD-10-PCS; principal; 2019-05-02)
PROC: 3E0337Z Introduction of Electrolytic and Water Balance Substance into Peripheral Vein, Percutaneous Approach (ICD-10-PCS; 2019-05-02)
PROC: B440ZZZ Ultrasonography of Abdominal Aorta (ICD-10-PCS; 2019-05-02)
PROC: BT4JZZZ Ultrasonography of Kidneys and Bladder (ICD-10-PCS; 2019-05-02)
DX: R10.32 Left lower quadrant pain (principal); G35 Multiple sclerosis
CPT/HCPCS: 36415; 74177-TC; 80053; 81003; 83690; 85025; 87086; 99283-25